=== PATIENT | female | born 1970 | race Two or more races ===

== ENCOUNTER → 2019-11-07 | Outpatient (CLI) | payer OTHER | END | disposition home or self-care (01) | LOC: LAB 09:55 | PROVIDERS: ATTEND Nurse Practitioner Family | DX: U07.1 COVID-19 (principal) ==

== ENCOUNTER 2020-02-06 07:18 | Emergency (ER) | payer OTHER ==
[~2020-02-06] VITALS: Ht 175.3 cm; Wt 129.7 kg
[2020-02-06 07:40] VITALS: BP 121/84
[2020-02-06 08:12] LABS: Urine Bacteria MOD /hpf (None Seen); Urine Blood 2+ /uL (Negative); Urine Mucus FEW (None Seen); Urine Specific Gravity 1.017 (1.001-1.035); Urine WBC 641 /hpf (0 - 5); Urine WBC Clumps PRESENT /hpf (None Seen)
== END 2020-02-06 09:45 | disposition home or self-care (01) ==
LOC: ER 07:18
DX: R73.9 Hyperglycemia, unspecified (principal); N39.0 Urinary tract infection, site not specified; R53.1 Weakness; Z20.828 Contact with and (suspected) exposure to other viral communicable diseases
CPT/HCPCS: 36415; 71045; 81001; 87426

== ENCOUNTER 2020-02-07 10:38 | Inpatient (IN) | payer OTHER ==
[~2020-02-07] VITALS: Ht 172.7 cm; Wt 126.8 kg
[2020-02-07] VITALS (18 sets, daily range): BP systolic 107–162; BP diastolic 55–93
[2020-02-07] MEDS ORDERED: dilTIAZem 25 MG/5 ML VIAL IV ONE (10:45)
[2020-02-07] MEDS ORDERED: SODIUM CHLORIDE 0.9% 500 ML IV ONE (10:45)
[2020-02-07] MEDS ORDERED: ENOXAPARIN SOD 30 MG/0.3 ML SYRINGE IV ONE (11:00)
[2020-02-07 11:07] LABS: Hemoglobin 16.5 g/dL (12.2-16.2); Mean Corpuscular Hemoglobin 29.9 pg (28.0-32.0)
[2020-02-07 11:08] LABS: Hematocrit 49.8 % (36.0-46.0); Mean Corpuscular Hgb Conc. 33.1 g/dL (32.0-36.0); Mean Corpuscular Volume 90.5 fL (80.0-100.0); Platelet Count (auto) 90 10^3/uL (140-450); Red Cell Distribution Width 15.3 % (11.8-14.3)
[2020-02-07 11:16] LABS: White Blood Cell 33.8 10^3/uL (4.4-10.8)
[2020-02-07 11:19] LABS: Basophils % (manual) 0 (0.0-2.0); Blast Cells 0; Eosinophils % (manual) 0 (0-7); Myelocytes % 0; Promyelocytes % 0; Reactive Lymphocytes 0
[2020-02-07 11:22] LABS: INR 1.23 (0.9-1.15); Partial Thromboplastin Time 26.9 sec (23.0-31.2)
[2020-02-07 11:27] LABS: Carbon Dioxide 18 mmol/L (21-32); Chloride 83 mmol/L (98-107); Potassium 4.8 mmol/L (3.5-5.1)
[2020-02-07 11:28] LABS: Alanine Aminotransferase 33 U/L (13-56); Albumin 1.9 g/dL (3.4-5.0); Anion Gap 17 (5-15); Blood Urea Nitrogen 54 mg/dL (7-18); Calcium 9.9 mg/dL (8.5-10.1); Magnesium 3.1 mg/dL (1.6-2.6)
[2020-02-07 11:36] LABS: Alkaline Phosphatase 344 U/L (45-117); Aspartate Aminotransferase 37 U/L (15-37); BUN/Creatinine Ratio 32.5; GFR African American 42 mL/min; GFR Non-African American 35 mL/min; Total Protein 6.7 g/dL (6.4-8.2)
[2020-02-07 11:39] LABS: Sodium 118 mmol/L (136-145)
[2020-02-07 11:40] LABS: Glucose 640 mg/dL (74-106)
[2020-02-07] MEDS ORDERED: InsuLIN R (HUMAN) 100 UNITS in SODIUM CHL 0.9% 99 ML IV SCH ×3 (11:45→17:30)
[2020-02-07] MEDS ORDERED: DEXTROSE (50%) 50ML SYRG IV PRN (11:45)
[2020-02-07] MEDS ORDERED: InsuLIN REG 1unit/0.01ml Soln (100units/ml) IV ONE (11:45)
[2020-02-07] MEDS ORDERED: INSULIN LANTUS (GLARGINE) 1 /0.01ml (100units/ml) SC ONE (11:45)
[2020-02-07] MEDS ORDERED: SODIUM CHL 3% 500 ML IV ONE (11:45)
[2020-02-07] MEDS: ACCU-CHEK COMFORT CURVE STRIP VI SCH ×7 (12:00→22:34)
[2020-02-07 12:01] LABS: Band Neutrophils % (manual) 14; Lymphocytes % (manual) 3 (10.0-50.0); Metamyelocytes % 3; Monocytes % (manual) 8 (0-12)
[2020-02-07 12:42] LABS: Lactic Acid w/Reflex 3.7 mmol/L (0.4-2.0)
--- NOTE | 2020-02-07 12:58 | NUR ---
Midline Placement: Patient educated on need for midline placement. All risks and benefits explained and all questions and concerns addresses prior to procedure. 18g/10cm midline inserted via right basilic vein using Ultrasound. Sterile technique utilized. Blood return obtained from the single lumen and flushed easily with NS using proper technique. Midline secured with saline lock; biodisc and occlusive dressing applied. Primary RN notified. Midline lot # [id number]
[2020-02-07] MEDS ORDERED: NITROGLYCERIN 0.4 MG SL TAB SL PRN (13:15)
[2020-02-07] MEDS ORDERED: MORPHINE SULF INJ 2 MG/ML SYRINGE 1ML IV PRN (13:15)
[2020-02-07] MEDS ORDERED: SODIUM CHLORIDE 0.9% 1,000 ML IV ONE (13:15)
[2020-02-07] MEDS ORDERED: dilTIAZem 125mg/125ml BAG KIT 125 ML IV SCH (13:15)
[2020-02-07] MEDS ORDERED: ASPirin 81 mg TAB PO ONE ×2 (13:30→13:45)
[2020-02-07] MEDS ORDERED: MIDAZOLAM HCL 5 MG/ML-1ML VIAL ONE (13:35)
[2020-02-07] MEDS ORDERED: METOPROLOL TARTRATE 1MG/1ML-5ML VIAL IV ONE ×2 (13:40→13:45)
[2020-02-07] MEDS ORDERED: MIDAZOLAM HCL 5 MG/ML-1ML VIAL IV ONE (13:45)
[2020-02-07] MEDS: SODIUM CHLORIDE 0.9% 1,000 ML IV SCH ×2 (14:20→21:51)
[2020-02-07] MEDS: cefTRIAXone 1GM/50ML D5W 50 ML IV SCH (15:00)
--- NOTE | 2020-02-07 16:30 | NUR ---
Pt being admitted to ICU [facility] admitted to ICU via gurney on card grinder helper. Patient transferred to bed, connected to ICU monitoring and weighed by bedscale. Patient oriented to Sherly Boyd, primary RN, unit, room, bed, and unit policies regarding patient care and visiting hours. All questions and concerns addressed, patient verbalized understanding. Patient alert and oriented x4, no distress noted, respirations even and unlabored, patient currently on room air, vss and documented. Patient did report to this nurse feeling "very tired". Patient repositioned for comfort, physical assessment performed (see spreadsheet for details). Fall and safety precautions in place, call light within reach. Will continue to monitor.
--- NOTE | 2020-02-07 17:20 | NUR ---
CONTACT HOSPITALIST/TRAVIS INSERTION/INCREASE INSULIN DRIP SPOKE WITH ALBERT ORTEGA NP NOTIFIED OF PATIENT'S CURRENT BLOOD SUGAR OF 576 - CURRENT INSULIN DRIP ALGORITHM #2, ORDERS TO INCREASE TO ALGORITHM 3. MD ALSO NOTIFIE OF NEED FOR TRAVIS CATHETER PATIENT NOTIFIED THIS NURSE THAT SHE HAD NOT URINATED SINCE ADMISSION TO HOSPITAL. MD VERBALIZED UNDERSTANDING. INSULIN DRIP INCREASED TO 16 UNITS PER ALGORITHM #3 PROTOCOL. Travis catheter insertion Patient assessed and determined to be in need of travis catheter. Order obtained from MD. Patient educated on catheter and reason for insertion. All questions answered. Travis catheter 16 gauge Jordanian inserted with clean sterile technique. Patient tolerated well with a total of 1100 mls of clear yellow urine emptied in travis collection bag.
[2020-02-07] MEDS: RIVAROXABAN 20 MG TAB PO SCH (18:00)
[2020-02-07 19:37] LABS: Calcium 9.1 mg/dL (8.5-10.1)
--- NOTE | 2020-02-07 19:38 | NUR ---
BS/CONTACT HOSPITALIST CURRENT BLOOD SUGAR 440, HOSPITALIST NOTIFIED - WILL KEEP PATIENT ON ALGORITHM #3 AND CONTINUE INSULIN DRIP AT 16 UNITS. MD ALSO AWARE OF VITAL SIGNS AND PATIENT FEELING FATIGUED. WILL ENDORSE CONTINUED TREATMENT TO PTA RN.
--- NOTE | 2020-02-07 19:45 | NUR ---
NEXT OF KIN PATIENT IS ORIENTED X 4. PATIENT'S FRIENDS CAMRYN AND LELA ARE HER NEXT OF KIN IN CHART. NO PASSWORD MADE. I ASKED PATENT "IS IT OKAY TO GIVE INFORMATIONS TO YOUR FRIENDS CAMRYN AND LELA ?" PATIENT SAID "YES, THAT'S OKAY"
--- NOTE | 2020-02-07 20:00 | NUR ---
HOSPITALIST AT BEDSIDE JORDAN BAG BLEACHER UPDATED ON PT'S STATUS. ORDERS RECEIVED. BAG BLEACHER TOLD TO KEEP ALGORITHM 3 INSULIN DRIP DURING NIGHT.
--- NOTE | 2020-02-07 20:05 | NUR ---
RECEIVED PHONE CALL FROM PATIENT'S FRIEND LELA. UPDATES GIVEN.
[2020-02-07] MEDS ORDERED: ACETAMINOPHEN 500 MG TAB PO PRN (20:15)
[2020-02-07] MEDS ORDERED: METOPROLOL TARTRATE 25 MG TAB PO ONE (20:15)
[2020-02-07] MEDS ORDERED: LABETALOL HCL 5 MG/ML 4ML SYRINGE IV PRN (20:15)
[2020-02-07] MEDS: POTASSIUM CHL 20MEQ/100ML 100 ML IV SCH ×2 (20:25→22:04)
[2020-02-07] MEDS ORDERED: POTASSIUM EFFERVESENT TAB 25 MEQ GT ONE (20:45)
[2020-02-08] VITALS (24 sets, daily range): BP systolic 99–142; BP diastolic 52–80
[2020-02-08] MEDS: ACCU-CHEK COMFORT CURVE STRIP VI SCH ×12 (00:04→20:40)
--- NOTE | 2020-02-08 03:30 | NUR ---
DESATURATING ON ROOM AIR SATURATION DROPPING TO 86-88% WHILE SLEEPING. PLACED PATIENT ON 2 L OXYGEN VIA NASAL CANNULA.
[2020-02-08] MEDS: SODIUM CHLORIDE 0.9% 1,000 ML IV SCH ×2 (04:44→10:08)
[2020-02-08 04:48] LABS: Hemoglobin 14.1 g/dL (12.2-16.2)
[2020-02-08 04:49] LABS: Hematocrit 42.3 % (36.0-46.0); Mean Corpuscular Hemoglobin 29.5 pg (28.0-32.0); Mean Corpuscular Hgb Conc. 33.4 g/dL (32.0-36.0); Mean Corpuscular Volume 88.2 fL (80.0-100.0); Platelet Count (auto) 44 10^3/uL (140-450); Red Cell Distribution Width 14.2 % (11.8-14.3)
[2020-02-08 05:18] LABS: Albumin 1.5 g/dL (3.4-5.0); BUN/Creatinine Ratio 40.7; Bilirubin, Total 0.7 mg/dL (0.2-1.0); Calcium 8.4 mg/dL (8.5-10.1); Magnesium 2.5 mg/dL (1.6-2.6); Total Protein 5.4 g/dL (6.4-8.2)
[2020-02-08 05:36] LABS: Phosphorus 0.9 mg/dL (2.5-4.90); White Blood Cell 31.9 10^3/uL (4.4-10.8)
[2020-02-08 05:38] LABS: Basophils % (manual) 0 (0.0-2.0); Blast Cells 0; Eosinophils % (manual) 0 (0-7); Myelocytes % 0; Promyelocytes % 0; Reactive Lymphocytes 0
--- NOTE | 2020-02-08 05:48 | NUR ---
HOSPITALIST PAGED HOSPITALIST REGARDING CRITICAL PHOSPHOROUS LEVEL. WAITING FOR CALL BACK.
--- NOTE | 2020-02-08 06:18 | NUR ---
HOSPITALIST BERKLEY SLOTTER OPERATOR HELPER CALLED BACK AND ORDERS RECEIVED.
[2020-02-08 06:19] LABS: Band Neutrophils % (manual) 13; Lymphocytes % (manual) 4 (10.0-50.0); Metamyelocytes % 2; Monocytes % (manual) 5 (0-12)
[2020-02-08] MEDS ORDERED: SODIUM PHOSPHATES 20 MEQ in SODIUM CHL 0.9% 100 ML IV ONE (06:30)
--- NOTE | 2020-02-08 07:30 | NUR ---
Opening Shift Note Assumed care of patient, awake and alert. No S/S of distress/SOB or pain. See interventions for complete assessment. Bed locked on low position, side rails up x2, bed alarms on at all times, call leblanc within reach, instructed on POC and to call for assist PRN, will continue to monitor for changes Q1hr and PRN.
--- NOTE | 2020-02-08 08:10 | NUR ---
Patient on [place] Isolation at this time, patient negative for Covid Rapid Test 02/05, Covid PCR swab sent to lab. Awaiting report.
[2020-02-08] MEDS: cefTRIAXone 1GM/50ML D5W 50 ML IV SCH (09:58)
[2020-02-08] MEDS ORDERED: INSULIN LANTUS (GLARGINE) 1 /0.01ml (100units/ml) SC ONE ×2 (10:00→10:06)
[2020-02-08] MEDS ORDERED: ENOXAPARIN SOD 30 MG/0.3 ML SYRINGE SC SCH (10:00)
[2020-02-08] MEDS ORDERED: INSULIN LANTUS (GLARGINE) 1 /0.01ml (100units/ml) SC SCH ×2 (10:00→22:00)
[2020-02-08] MEDS ORDERED: METOPROLOL SUCCINATE XL 50 MG TAB PO SCH (10:00)
[2020-02-08] MEDS ORDERED: PANTOPRAZOLE 40 MG/10 ML VIAL INJ IV SCH (10:00)
[2020-02-08] MEDS ORDERED: PIPERACILLIN-TAZOB 3.375GM 100 ML IV ONE (10:00)
[2020-02-08] MEDS ORDERED: ASPirin 81 mg TAB PO SCH (10:00)
--- NOTE | 2020-02-08 10:45 | NUR ---
Dr Chavez at bedside, updated on patient's status. Informed of patient's WBC count, blood culture result and platelet level. Patient seen and examined. Will carry out new orders.
--- NOTE | 2020-02-08 10:50 | NUR ---
Urine sample sent to lab.
[2020-02-08] MEDS: PIPERACILLIN-TAZOB 3.375GM 100 ML IV SCH ×2 (10:56→17:55)
--- NOTE | 2020-02-08 11:00 | NUR ---
Insulin drip turned off per Dr Chavez's order. Will continue to monitor.
[2020-02-08 11:20] LABS: Urine Bacteria FEW /hpf (None Seen); Urine Blood 3+ /uL (Negative); Urine Specific Gravity 1.009 (1.001-1.035); Urine WBC 48 /hpf (0 - 5)
[2020-02-08 11:22] LABS: Lactic Acid w/Reflex 2.2 mmol/L (0.4-2.0)
[2020-02-08] MEDS ORDERED: SODIUM CHLORIDE 0.9% 1,000 ML IV SCH (12:00)
[2020-02-08] MEDS ORDERED: DEXTROSE (50%) 50ML SYRG IV PRN (12:00)
[2020-02-08 12:06] LABS: Hematocrit 43.7 % (36.0-46.0); Hemoglobin 14.6 g/dL (12.2-16.2); Mean Corpuscular Hemoglobin 29.4 pg (28.0-32.0); Mean Corpuscular Hgb Conc. 33.5 g/dL (32.0-36.0); Mean Corpuscular Volume 87.8 fL (80.0-100.0); Platelet Count (auto) 79 10^3/uL (140-450); Red Blood Cells 4.97 10^6/uL (4.0-5.20); Red Cell Distribution Width 14.5 % (11.8-14.3); White Blood Cell 29.6 10^3/uL (4.4-10.8)
[2020-02-08 12:17] LABS: Calcium 8.4 mg/dL (8.5-10.1); Magnesium 2.7 mg/dL (1.6-2.6); Potassium 4.9 mmol/L (3.5-5.1)
[2020-02-08 12:19] LABS: Basophils % (manual) 0 (0.0-2.0); Blast Cells 0; Eosinophils % (manual) 0 (0-7); Metamyelocytes % 0; Myelocytes % 0; Promyelocytes % 0; Reactive Lymphocytes 0
[2020-02-08] MEDS: InsuLIN REG 1unit/0.01ml Soln (100units/ml) SC SCH ×3 (12:46→20:42)
[2020-02-08 12:52] LABS: Band Neutrophils % (manual) 8; Lymphocytes % (manual) 4 (10.0-50.0); Monocytes % (manual) 5 (0-12)
--- NOTE | 2020-02-08 13:45 | NUR ---
Co Workers listed under next of Kin Lisa and Anni at bedside. Updated on patient's status and POC, verbalized understanding. All questions and concerns addressed.
--- NOTE | 2020-02-08 14:00 | NUR ---
Attempted to contact hospice educator Valerie at [phone], not picking up, left a voicemail. Awaiting call back.
--- NOTE | 2020-02-08 14:15 | NUR ---
Patient complaining of nausea, paged Dr Chavez. Awaiting call back.
--- NOTE | 2020-02-08 15:45 | NUR ---
02/08/20 1545 Called [place] [phone], spoke with Magui gallego, stated they received the transfer packet , stated per Mikayla ESTRELLA she will start working on the transfer. Transfer packet was faxed to [place] [facility] at [phone].
[2020-02-08] MEDS: ONDANSETRON HCL 4 MG/2 ML VIAL IV PRN (16:00)
--- NOTE | 2020-02-08 17:15 | NUR ---
Patient out of room to CT scan
--- NOTE | 2020-02-08 17:30 | NUR ---
Patient back to room from CT scan
[2020-02-08] MEDS: RIVAROXABAN 20 MG TAB PO SCH (17:55)
--- NOTE | 2020-02-08 19:00 | NUR ---
Chest CT report pending. Awaiting result.
--- NOTE | 2020-02-08 20:00 | NUR ---
OPEN ASSUMED CARE OF FEMALE PT. FATIGUED, A&O X 4. O2 VIA N/C 2L. SR ON ACCESSORIES REPAIRER. CRYSTAL MIDLINE IN PLACE WITH NS INFUSING AT 125 ML/HR. MIDLINE PATENT WITH CDI DRESSING. 20 G IV TO R. AC S/L B&P. TAMAYO TO GRAVITY DRAINING PINK TINGED URINE. MARCELL SCD'S IN PLACE. PT DENIES PAIN AT THIS TIME. NO SKIN BREAKDOWN OBSERVED. PILLOWS USED TO OFFLOAD BONY PROMINENCES. BED IN LOWEST LOCKED POSITION. SIDE RAILS UP X 2. HOB ELEVATED 30 DEGREES. CALL GONZALES IN REACH. BEDSIDE MONITOR ALARMS ON AND AUDIBLE. WILL CONTINUE TO MONITOR.
--- NOTE | 2020-02-08 21:00 | NUR ---
FRIEND CALLED UNIT/PERMISSION TO UPDATE OBTAINED FROM PT. FRIEND LELA CALLED UNIT FOR UPDATE ON PT CONDITION. NO PASSWORD ON FILE. PT GIVES PERMISSION TO DISCLOSE UPDATES TO FRIENDS LELA AND CAMRYN. AFTER PERMISSION OBTAINED FROM PT UPDATE GIVEN TO LELA. ALL QUESTIONS AND CONCERNS ADDRESSED
--- NOTE | 2020-02-08 23:30 | NUR ---
CONSENT FOR TRANSFER OBTAINED FROM PT.
--- NOTE | 2020-02-08 23:30 | NUR ---
[facility] CALLED UNIT. [phone]. PT WILL GO TO [facility] TELE ROOM 331. PER MONTEZUMA [facility]OLLEYB[employer] COMMENTATOR TRANSPORT WILL BE ACLS PT NO LONGER ON INSULIN GTT NOT REQUIRING [facility] TRANSPORT. ACCEPTING MD MARIAN ABDUL.
[2020-02-09] VITALS: BP 118/71
[2020-02-09] MEDS: ACCU-CHEK COMFORT CURVE STRIP VI SCH (00:12)
[2020-02-09] MEDS: PIPERACILLIN-TAZOB 3.375GM 100 ML IV SCH (00:12)
[2020-02-09] MEDS: InsuLIN REG 1unit/0.01ml Soln (100units/ml) SC SCH (00:13)
[2020-02-09] MEDS: ONDANSETRON HCL 4 MG/2 ML VIAL IV PRN (00:14)
--- NOTE | 2020-02-09 00:50 | NUR ---
REPORT TO [place] KT LEAL
--- NOTE | 2020-02-09 01:11 | NUR ---
TRANSFER TO [facility] TO UNIT TO TRANSPORT PT TO [facility] TELE 331. PT IN STABLE CONDITION.
== END 2020-02-09 02:29 | disposition short-term general hospital (02) | DRG 871 ==
LOC: ER 10:38 → EEVIPCON 10:39 → TELE 10:39 → ICU WEST 16:16
PROVIDERS: ADMIT Nurse Practitioner Acute Care; ATTEND Internal Medicine
PROC: 5A2204Z Restoration of Cardiac Rhythm, Single (ICD-10-PCS; principal; 2020-02-07)
DX: A41.9 Sepsis, unspecified organism (principal); E11.10 Type 2 diabetes mellitus with ketoacidosis without coma; N17.0 Acute kidney failure with tubular necrosis; I50.33 Acute on chronic diastolic (congestive) heart failure; D68.59 Other primary thrombophilia; E87.1 Hypo-osmolality and hyponatremia; Z68.41 Body mass index [BMI] 40.0-44.9, adult; D69.59 Other secondary thrombocytopenia; N30.90 Cystitis, unspecified without hematuria; E66.01 Morbid (severe) obesity due to excess calories; E86.1 Hypovolemia; Z20.828 Contact with and (suspected) exposure to other viral communicable diseases; E88.09 Other disorders of plasma-protein metabolism, not elsewhere classified; I48.91 Unspecified atrial fibrillation; Z86.19 Personal history of other infectious and parasitic diseases; Z83.3 Family history of diabetes mellitus
CPT/HCPCS: 36415; 36600; 71045; 71250; 80048; 80053; 80061; 81001; 82728; 82805; 82962; 83036; 83605; 83735; 83880; 84100; 84443; 84484; 84702; 85007; 85025; 85027; 85610; 85730; 87040; 87077; 87081; 87086; 87186; 93306; 99291; C9113; G0378; J0696; J1815; J2250; J2405; J2543; J3480